=== PATIENT | female | born 1995 | race Caucasian/White ===

== ENCOUNTER 2018-03-08 09:46 | Day surgery (SDC) | payer OTHER ==
[2018-03-08 09:54] VITALS: BMI 43.2
--- NOTE | 2018-03-08 10:07 | PDOC ---
History of Present Illness - General Chief Complaint: Pain, Acute Stated Complaint: PRE-SURG Time Seen by Provider: 03/08/18 10:07 - History of Present Illness Initial Comments: 22 year old female with known cholelithiasis presenting with severe RUQ abdominal pain. She was scheduled for a surgical consult with a surgeon who's name she was unsure of at 11:00 AM today but could not stand the pain so she came to the ED. She had one episode of subjective fever two nights ago, daily bilious vomiting and soft stools. She was last seen at [facility] 2 weeks prior and had an US demonstrating increased burden of cholelithiasis. Denies chest pain, SOB, diaphoresis, or other sick symptoms. 03/08/18 10:25 Past History - Past Medical History Allergies/Adverse Reactions: Allergies Allergy/AdvReac Type Severity Reaction Status Date / Time No Known Allergies Allergy Verified 03/08/18 09:51 Home Medications: Ambulatory Orders NK [No Known Home Medication] 03/08/18 COPD: No Other medical history: Denies. - Surgical History Cholecystectomy: Yes (X1) - Suicide/Smoking/Psychosocial Hx Smoking History: Never smoked Review of Systems - Review of Systems Constitutional: Yes: Fever. No: Chills, Diaphoresis HEENTM: No: Eye Pain, Blurred Vision, Tearing Respiratory: No: Cough, Orthopnea, Shortness of Breath, Wheezing Cardiac (ROS): No: Chest Pain, Edema, Irregular Heart Rate ABD/GI: Yes: Nausea, Poor Appetite, Vomiting. No: Diarrhea : No: Burning, Dysuria, Discharge Musculoskeletal: No: Back Pain, Joint Pain Integumentary: No: Bruising, Flushing, Lesions, Lumps Neurological: No: Headache, Numbness, Paresthesia Psychiatric: No: Anxiety, Depression Hematologic/Lymphatic: No: Anemia, Blood Clots, Easy Bleeding *Physical Exam - Vital Signs Last Vital Signs Temp Pulse Resp BP Pulse Ox 98.5 F 89 19 146/86 98 03/08/18 09:51 03/08/18 09:51 03/08/18 09:51 03/08/18 09:51 03/08/18 09:51 - Physical Exam General Appearance: Yes: Nourished, Appropriately Dressed. No: Apparent Distress HEENT: positive: EOMI, ALFONSO, Normal ENT Inspection, Normal Voice Neck: positive: Trachea midline, Normal Thyroid, Supple. negative: Tender, Rigid Respiratory/Chest: positive: Lungs Clear, Normal Breath Sounds. negative: Chest Tender, Respiratory Distress, Accessory Muscle Use Cardiovascular: positive: Regular Rhythm, Regular Rate Gastrointestinal/Abdominal: positive: Normal Bowel Sounds, Tender (epigastric and RUQ tenderness to palpation), Flat, Soft, Tenderness. negative: Distended, Guarding, Rebound Musculoskeletal: positive: Normal Inspection. negative: CVA Tenderness Extremity: positive: Normal Capillary Refill, Normal Range of Motion. negative : Tender Integumentary: positive: Normal Color, Dry, Warm Neurologic: positive: Fully Oriented, Alert, Normal Mood/Affect, Normal Response , Motor Strength 03/12 ED Treatment Course - LABORATORY CBC & Chemistry Diagram: 03/08/18 10:39 03/08/18 10:39 Medical Decision Making - Medical Decision Making 22 year old female with known cholelithiasis presenting with worsened abdominal pain. Patient was supposed to be evalauted for surgery today but the pain was too sever. Preop labs ordered and Dr. Albrecht evaluated the patient. Imaging ordered per Dr. Albrecht and will admit to [facility]. 03/08/18 11:23 *DC/Admit/Observation/Transfer Diagnosis at time of Disposition: Cholelithiasis Qualifiers: Cholelithiasis location: gallbladder Cholecystitis acuity: chronic Biliary obstruction: without biliary obstruction - Discharge Dispostion Condition at time of disposition: Stable Admit: Yes - Referrals - Patient Instructions - Post Discharge Activity
--- NOTE | 2018-03-08 10:11 | PDOC ---
Attending Attestation - Resident Resident Name: Shun Morrow - HPI HPI: 03/08/18 11:42 Pt presents to the ED complaining of RUQ pain that has been persistent for one year but acutely worse today. Denies fever, but complains of multiple episodes of nausea and vomiting. History of cholelithiasis. Had an appointment with a surgeon to discuss cholecystectomy, which she was unable to keep because she presented to the ED today. - Physicial Exam PE: 03/08/18 11:54 Agree with resident exam. Patient is awake and alert and in no acute distress. Abodmen is tender in the RUQ without guarding or rebound. - Medical Decision Making 03/08/18 11:56 Pt presents to the ED complaining of RUQ pain. Previous diagnosis of cholelithiasis. Case discussed with Dr. Santamaria, who has come to the bedside to see the patient. Will check labs and admit for cholecystectomy due to intractable pain.
[2018-03-08] MEDS ORDERED: ONDANSETRON 4 MG/2 ML VIAL IVPUSH PRN ×3 (10:43→20:28)
[2018-03-08] MEDS ORDERED: IBUPROFEN 600 MG TABLET (FP) PO PRN ×3 (10:43→20:30)
[2018-03-08] MEDS ORDERED: ACETAMINOPHEN 325 MG TABLET (FP) PO PRN ×2 (10:43→13:54)
[2018-03-08] MEDS ORDERED: morphine CARPU-JECT 2 MG/1 ML DISP.SYRIN IVPUSH PRN (10:43)
[2018-03-08 10:44] LABS: URINE APPEARANCE CLOUDY; URINE BILIRUBIN NEGATIVE (<2.0 mg/dL); URINE BLOOD 3+ (NEGATIVE); URINE COLOR RED; URINE GLUCOSE (UA) NEGATIVE (NEGATIVE); URINE KETONE NEGATIVE (NEGATIVE); URINE NITRITE NEGATIVE (NEGATIVE); URINE UROBILINOGEN NEGATIVE mg/dL (0.2-1.0)
[2018-03-08 10:45] LABS: BASO % 1.2 % (0-2.0); HEMATOCRIT 35.3 % (32.4-45.2); HEMOGLOBIN 11.8 GM/dL (10.7-15.3); LYMPH % 24.3 % (8-40); MCH 25.8 pg (25.7-33.7); MCHC 33.4 g/dl (32.0-36.0); MEAN CELL VOLUME 77.3 fl (80-96); MEAN PLT VOLUME 8.4 fl (7.5-11.1); MONO % 7.8 % (3.8-10.2); NEUT % 62.7 % (42.8-82.8); PLATELET COUNT 297 K/MM3 (134-434); RBC 4.57 M/mm3 (3.60-5.2); RDW 16.8 % (11.6-15.6); URINE LEUK ESTERASE 2+ (NEGATIVE); URINE PROTEIN 2+ (NEGATIVE); WHITE BLOOD COUNT 6.8 K/mm3 (4.0-10.0)
[2018-03-08] MEDS ORDERED: LACTATED RINGERS SOLUTION 1,000 ML IV SCH ×2 (10:45→14:30)
[2018-03-08 10:49] LABS: EPI CELLS FEW /HPF (FEW); URINE MUCUS FEW
[2018-03-08 10:50] LABS: HCG,QUALITATIVE URINE Negative
--- NOTE | 2018-03-08 10:53 | HP ---
Admitting History and Physical - Admission Chief Complaint: abdominal pain History of Present Illness: 22yo female PMH obesity presented to the ED complaining of RUQ abdominal pain persistent and worsening for the last month. She has called several times with similar complaints. She has a diet high in saturated fats and her abdominal pain also starts soon after meals. She was recently seen at [facility] and found to have multiple gallstones. She denies fever and chills, nausea and vomiting. She has not had previous abdominal surgery. She has not has previous endoscopy. We were asked to assess. History Source: Patient, Medical Record Limitations to Obtaining History: No Limitations - Past Medical History Hepatobiliary: Yes: Cholelithiasis Additional Past Medical History: obesity - Smoking History Smoking history: Never smoked Have you smoked in the past 12 months: No - Alcohol/Substance Use Hx Alcohol Use: No - Social History History of Recent Travel: No Home Medications - Allergies Allergies/Adverse Reactions: Allergies Allergy/AdvReac Type Severity Reaction Status Date / Time No Known Allergies Allergy Verified 03/08/18 09:51 - Home Medications Home Medications: Ambulatory Orders NK [No Known Home Medication] 03/08/18 Review of Systems - Review of Systems Constitutional: denies: Chills, Fever Eyes: denies: Blurred Vision, Recent Change in Vision HENT: denies: Difficult Swallowing, Throat Pain Neck: denies: Pain on Movement, Swollen Glands Respiratory: denies: Cough, SOB Gastrointestinal: reports: Abdominal Pain, Indigestion Genitourinary: reports: Menses (currently). denies: Discharge, Dysuria Breasts: reports: No Symptoms Reported. denies: Pain Musculoskeletal: denies: Muscle Pain, Muscle Weakness Integumentary: denies: Lesions, Rash Neurological: denies: Seizure, Syncope Endocrine: denies: Unexplained Weight Gain, Unexplained Weight Loss Hematology/Lymphatic: denies: Easily Bruised, Excessive Bleeding Psychiatric: denies: Anxiety, Depression Physical Examination Vital Signs: Vital Signs Temperature 98.5 F 03/08/18 09:51 Pulse Rate 89 03/08/18 09:51 Respiratory Rate 19 03/08/18 09:51 Blood Pressure 146/86 03/08/18 09:51 O2 Sat by Pulse Oximetry (%) 98 03/08/18 09:51 Vital Signs Period Temp Pulse Resp BP Sys/Lambert Pulse Ox Last 24 Hr 98.5 F 89 19 146/86 98 Constitutional: Yes: No Distress, Calm, Obese Eyes: Yes: Conjunctiva Clear, EOM Intact HENT: Yes: Atraumatic, Normocephalic Neck: Yes: Supple, Trachea Midline Cardiovascular: Yes: Regular Rate and Rhythm, S1, S2 Respiratory: Yes: Regular, CTA Bilaterally Gastrointestinal: Yes: Normal Bowel Sounds, Soft, Tenderness (RUQ tenderness with -murphys), Tenderness, Epigastrium ...Rectal Exam: Yes: Deferred Renal/: No: CVA Tenderness - Left, CVA Tenderness - Right Musculoskeletal: No: Muscle Pain, Muscle Weakness Extremities: No: Cool, Cyanosis Edema: No Peripheral Pulses WNL: Yes Peripheral Pulses: Left Radial: 2+, Right Radial: 2+, Left Doralis Pedis: 2+, Right Dorsalis Pedis: 2+ Integumentary: No: Jaundice, Rash Neurological: Yes: Alert, Oriented Psychiatric: Yes: Alert, Oriented Imaging - Results Ultrasound: Report Reviewed, Image Reviewed Problem List - Problems (1) Cholecystitis Assessment/Plan: 22yo female with PMH obesity cholelithiasis presents with chronic cholecytitis, NPO since last night NPO and IVF hydration IV antibiotics preop Analgesia OR today for Discussed with patient risks, benefits and alternatives of laparoscopic possible open cholecystectomy, including but not limited to bleeding, infection , injury to adjacent structures, leak or injury, intraabdominal abscess, need for further procedures, ; alternatives include antibiotics, delayed or no surgery - risks of this include failure of nonoperative therapy, perforation, sepsis, recurrence, .Patient desires to proceed with operation - will take to OR for above. Informed consent signed for same. Code(s): K81.9 - CHOLECYSTITIS, UNSPECIFIED (2) Cholelithiasis Code(s): K80.20 - CALCULUS OF GALLBLADDER W/O CHOLECYSTITIS W/O OBSTRUCTION Qualifiers: Cholelithiasis location: gallbladder Cholecystitis acuity: chronic Biliary obstruction: without biliary obstruction (3) Obesity (BMI 35.0-39.9 without comorbidity) Code(s): E66.9 - OBESITY, UNSPECIFIED (4) Abdominal pain in female patient Code(s): R10.9 - UNSPECIFIED ABDOMINAL PAIN
[2018-03-08 10:57] LABS: INR 0.97 (0.82-1.09)
[2018-03-08] MEDS ORDERED: CEFOXITIN SODIUM 2 GM in DEXTROSE 5%-WATER - 100 ML IVPB ONE ×2 (11:04→14:30)
[2018-03-08 11:12] LABS: ALBUMIN 3.6 g/dl (3.4-5.0); AMYLASE 47 U/L (25-115); ANION GAP 9 (8-16); BILIRUBIN,DIRECT < 0.2 mg/dL (0.0-0.2); BILIRUBIN,TOTAL 0.2 mg/dL (0.2-1.0); BLOOD UREA NITROGEN 13 mg/dL (7-18); CALCIUM 8.6 mg/dL (8.5-10.1); CHLORIDE 106 mmol/L (98-107); CO2 26 mmol/L (21-32); CREATININE 0.8 mg/dL (0.55-1.02); GLUCOSE,RANDOM 98 mg/dL (74-106); LIPASE 144 U/L (73-393); POTASSIUM 4.2 mmol/L (3.5-5.1); SGOT/AST 13 U/L (15-37); SGPT/ALT 24 U/L (12-78); SODIUM 141 mmol/L (136-145); TOT PROT 7.3 g/dl (6.4-8.2)
[2018-03-08 11:13] LABS: ALK PHOS 57 U/L (45-117)
[2018-03-08] MEDS ORDERED: BUPIVACAINE HCL/PF 0.5% (5MG/ML) 10 ML VIAL ONE (11:44)
[2018-03-08] MEDS ORDERED: fentaNYL CITRATE 250 MCG/5 ML VIAL ONE (12:29)
[2018-03-08] MEDS ORDERED: MIDAZOLAM HCL 2 MG/2 ML SINGLE DOSE VIAL ONE ×2 (12:30)
[2018-03-08] MEDS ORDERED: PROPOFOL 20 ML ONE (12:30)
[2018-03-08] MEDS ORDERED: ROCURONIUM BROMIDE 50 MG/5 ML VIAL ONE (12:30)
[2018-03-08] MEDS ORDERED: DEXAMETHASONE SOD PHOSPHATE 4 MG/1 ML VIAL ONE (12:32)
[2018-03-08] MEDS ORDERED: cefOXitin SODIUM 2 GM VIAL (RESTRICTED TO ID) IVPB ONE (12:35)
[2018-03-08] MEDS ORDERED: BUPIVACAINE HCL/PF 0.5% (5MG/ML) 10 ML VIAL IJ ONE (13:22)
[2018-03-08] MEDS ORDERED: NEOSTIGMINE METHYLSULFATE 0.5 MG/ML - 10 ML MDV ONE (13:23)
[2018-03-08] MEDS ORDERED: KETOROLAC TROMETHAMINE 30 MG/1 ML VIAL ONE (13:39)
--- NOTE | 2018-03-08 13:39 | SURG ---
Surgery Inspectors And Regulatory Officers Note Inspectors And Regulatory Officers: Mj Chinchilla PA-C Date of Service: 03/08/18 Diagnosis: Chronic cholecystitis/cholelithiasis Procedure: Laparoscopic cholecystectomy I was present for the entirety of the operative procedure. For further detail, please refer to operative report. Visit type - Case Type Case Type: ED Admission - Emergency Emergency Visit: Yes Care time: The patient presented to the Emergency Department on the above date and was hospitalized for further evaluation of their emergent condition. - New patient This patient is new to me today: Yes Date on this admission: 03/08/18
--- NOTE | 2018-03-08 13:41 | OP ---
Operative Note - Note: Operative Date: 03/08/18 Pre-Operative Diagnosis: acute on chronic cholecystitis Operation: laparoscopic cholecystectomy Findings: edematous gallbladder, multiple stones, critical view identified. Post-Operative Diagnosis: Same as Pre-op Surgeon: Steve Albrecht Professor Of Mathematics: Mj Chinchilla Anesthesiologist/GAS METER PROVER: Naila Díaz Anesthesia: General, Local (0.5% marcaine ) Specimens Removed: gallbladder and stones Estimated Blood Loss (mls): 5 Fluid Volume Replaced (mls): 400 (crystalloid ) Operative Report Dictated: Yes
[2018-03-08] MEDS ORDERED: KETOROLAC TROMETHAMINE 30 MG/1 ML VIAL IVPUSH ONE ×3 (13:43→17:15)
[2018-03-08] MEDS ORDERED: ACETAMINOPHEN 1000 MG/100 ML VIAL (NON FORMULARY) IVPB ONE ×2 (13:43→13:54)
[2018-03-08] MEDS ORDERED: ACETAMINOPHEN INJECTION 100 ML IVPB ONE (13:43)
--- NOTE | 2018-03-08 13:46 | EKG ---
Test Reason : Blood Pressure : / mmHG Vent. Rate : 073 BPM Atrial Rate : 073 BPM P-R Int : 134 ms QRS Dur : 086 ms QT Int : 366 ms P-R-T Axes : 048 028 023 degrees QTc Int : 403 ms NORMAL SINUS RHYTHM WITH SINUS ARRHYTHMIA NORMAL ECG NO PREVIOUS ECGS AVAILABLE Confirmed by Demarco Malin ([id number]) on 03/08/2018 1:46:15 PM Referred By: Confirmed By:Demarco Malin
[2018-03-08] MEDS ORDERED: morphine SULFATE 4 MG/ML VIAL IVPUSH PRN (13:54)
--- NOTE | 2018-03-08 14:49 | OP ---
DATE OF OPERATION: 03/08/2018 PREOPERATIVE DIAGNOSIS: [id number] cholecystitis. POSTOPERATIVE DIAGNOSIS: [id number] cholecystitis. PROCEDURE PERFORMED: Laparoscopic cholecystectomy. ATTENDING SURGEON: Steve Albrecht MD LEGAL MANAGER: CACHORRO Baer ANESTHESIOLOGIST: ANESTHESIA: General with local, local consisting of 0.5% Marcaine, a total of 20 mL given in an area block fashion. ESTIMATED BLOOD LOSS: 5 mL. INTRAVENOUS FLUID ADMINISTERED: Crystalloid, 400 mL. SPECIMEN: Gallbladder with stones. INDICATIONS: The patient is a 22-year-old female with intermittent biliary colic, history of episodes of acute cholecystitis. She presented with right upper quadrant abdominal pain. A sonogram confirmed the presence of pericholecystic fluid as well as large gallstones in the gallbladder. She was counseled regarding the risks, benefits and alternatives of surgical procedure, a laparoscopic cholecystectomy. She signed informed consent and was taken for the procedure. DESCRIPTION OF PROCEDURE: The patient was brought to the operating room and placed in the supine position on the operating table, with the right arm tucked and left arm extended 90 degrees perpendicular to the body's axis at the midline axis. Lower extremity SCDs had placed for compression. The patient was endotracheally intubated, after induction with general anesthesia without incident by the anesthesiologist. The anterior abdominal wall was then prepped and draped into a standard surgical fashion. We proceeded first with Veress needle entry at the umbilicus, after a formal time-out identifying the operative site and procedure, with all parties in agreement. A small mayco incision was made at the superior aspect of the umbilicus, and a Veress needle was passed into the midline rectus fascia with 2 clicks, and a saline drop test confirming position intra-abdominally, after elevating the abdominal wall with towel clips. We proceeded then with instillation of pneumoperitoneum to 15 mmHg. Once established, a 5-mm trocar was inserted at the supraumbilical site and the entry site was inspected. There appeared to be no trauma. We proceeded then with inspection of the gallbladder, which lay in normal position in the hepatic fossa. The patient was positioned in reverse Trendelenburg, facilitating dissection. Additional trocars were placed, at the xiphoid process an 11-mm port and 2 additional 5-mm ports in the right abdomen. Once established, the gallbladder was grasped at the dome and then at the infundibulum. We proceeded first with dissection of the peritoneum away from the cystic structures. The cystic duct and artery appeared in their normal anatomic location. A plane was developed posterior to the cystic duct and the cystic artery, allowing for the critical view, identifying the hepatic plate. Then were then cross-clipped with 5-mm Endo clips and then transected with Endo Debbi. The gallbladder was then elevated from the hepatic plate using Bovie cautery at the liver bed. Care was taken to carefully dissect this out, without avulsing from the liver bed. After completely removing the gallbladder and obtaining hemostasis the liver bed with Bovie cautery, the gallbladder was then retrieved from the subxiphoid position with an Endo Catch bag. The Endo Catch bag was then retrieved from the abdomen, and the gallbladder was inspected. There appeared to be multiple stones and an edematous wall was noted. We then proceeded with inspection of the site. A small amount of irrigation of the right upper quadrant and the liver bed, and assured the clips were in adequate position. The trocars were then removed under direct visualization. We proceeded to relieve the pneumoperitoneum and repair the subxiphoid position with a suture passer. 4-0 Vicryl was used to tie and ablate the tract from the xiphoid position. We then proceeded to repair the skin in interrupted fashion with 4-0 Monocryl. Once the skin was repaired in subcuticular fashion, the skin was cleaned and Dermabond was placed. The patient was awoken from general anesthesia, having tolerated the procedure well. She was given instructions to follow up in a period of 1 week. MD MC Canales/[id number]
[2018-03-08] MEDS ORDERED: DOCUSATE SODIUM 100 MG CAPSULE (FP) PO PRN (20:29)
[2018-03-08] MEDS: morphine SULFATE 4 MG/ML VIAL IVPUSH PRN (20:38)
[2018-03-08] MEDS: oxyCODONE HCL 5 MG TABLET PO PRN (23:19)
[2018-03-09] MEDS: morphine SULFATE 4 MG/ML VIAL IVPUSH PRN ×2 (00:35→05:34)
--- NOTE | 2018-03-09 09:11 | DS ---
Physical Examination Vital Signs: Vital Signs Temperature 98.3 F 03/09/18 08:00 Pulse Rate 65 03/09/18 08:00 Respiratory Rate 18 03/09/18 08:00 Blood Pressure 131/75 03/09/18 08:00 O2 Sat by Pulse Oximetry (%) 100 03/08/18 20:23 Vital Signs Period Temp Pulse Resp BP Sys/Lambert Pulse Ox Last 24 Hr 97.6 F-99.1 F 58-89 10-20 122-150/68-104 98-100 Findings/Remarks: Stable overnight, complaints of pain in the sub-xyphoid position, tolerating diet. Constitutional: Yes: Well Nourished, No Distress, Calm Eyes: Yes: Conjunctiva Clear, EOM Intact HENT: Yes: Atraumatic, Normocephalic Neck: Yes: Supple, Trachea Midline Cardiovascular: Yes: Regular Rate and Rhythm, S1, S2 Respiratory: Yes: Regular, CTA Bilaterally Gastrointestinal: Yes: Normal Bowel Sounds, Soft, Abdomen, Obese, Tenderness ( RUQ) ...Rectal Exam: Yes: Deferred Renal/: No: CVA Tenderness - Left, CVA Tenderness - Right Musculoskeletal: No: Muscle Pain, Muscle Weakness Extremities: No: Cool, Cyanosis Edema: No Peripheral Pulses WNL: Yes Peripheral Pulses: Left Radial: 2+, Right Radial: 2+, Left Doralis Pedis: 2+, Right Dorsalis Pedis: 2+, Left Femoral: 2+, Right Femoral: 2+ Wound/Incision: Yes: Clean/Dry, Well Approximated. No: Draining, Reddened Neurological: Yes: Alert, Oriented Psychiatric: Yes: Alert, Oriented Labs: CBC, BMP 03/08/18 10:39 03/08/18 10:39 Discharge Summary Reason For Visit: CHOLELITHIASIS Current Active Problems Abdominal pain in female patient (Acute) Cholecystitis (Acute) Cholelithiasis (Acute) Obesity (BMI 35.0-39.9 without comorbidity) (Acute) Procedures: Principal: laparoscopic cholecystectomy Hospital Course: Admitted from emergency department with severe RUQ pain and radiologic evidence of cholecystitis. Taken for urgent an uneventful laparoscopic cholecystectomy. stable post op tolerating diets and ambulating, voiding, discharged home. Condition: Improved - Instructions Diet, Activity, Other Instructions: Postoperative instructions: You had a Laparoscopic Cholecystectomy on 03/08/[address] Steve Albrecht of [facility]. Activity: Resume your usual activities gradually, but no heavy exertion or lifting more than 10-15 pounds for 4-6 weeks. Remove dressings 48 hours after surgery, if they are not already off. You may shower daily starting then, just pat the incision areas dry. Yara should not need to be recovered with any dressings, unless you have been told otherwise. Eat lightly at first, but advance to your usual diet as tolerated. Pain: For pain, you may use and alternate Tylenol (acetaminophen) and/or ibuprofen every 6 hours each as needed; this means that you can take one OR the other at 3-hour intervals. If you are prescribed a Tylenol/narcotic combination for severe pain, use it instead of plain Tylenol as needed and switch back when your pain starts decreasing. Do not take more than 4000mg of acetaminophen in a day. Take medications as prescribed or indicated on the labeling. Follow-up: Call Dr. Amor office at [phone] to make your postop appointment (Wednesday 1-2 weeks after surgery as advised). Clinic is held in the Diagnostic Center on the first floor of [facility]. Call the office if you have: * increasing pain not responsive to pain medication * fever of 101F or higher * vomiting * unusual or increasing bleeding or drainage from wounds * increasing redness or swelling at wound sites * inability to urinate Also, see your primary medical doctor within 1-2 weeks. Referrals: Kailash Decker MD [Staff Physician] - Disposition: HOME - Home Medications Comprehensive Discharge Medication List: Ambulatory Orders Ibuprofen 600 mg PO Q8H PRN #30 tablet 03/08/18 Ondansetron HCl [Zofran] 4 mg PO Q8H PRN 3 Days #15 tablet 03/08/18 Oxycodone HCl/Acetaminophen [Percocet 5/325 -] 1 tab PO Q6H #60 tab MDD 4
[2018-03-09] MEDS: ACETAMINOPHEN 325 MG TABLET (FP) PO PRN ×2 (10:51→17:08)
[2018-03-09] MEDS: oxyCODONE HCL 5 MG TABLET PO PRN ×2 (10:52→17:07)
[2018-03-09 14:29] VITALS: BP 135/85; PULSE 71; TEMP 98.4
[2018-03-09] MEDS ORDERED: POLYETHYLENE GLYCOL 3350 119 GM BTL PO ONE (14:45)
--- NOTE | 2018-03-10 16:19 | PATH ---
Surgical Pathology Report Patient Name: SHAE AMOR [facility]. Rec. #: [id number] /Age/Gender: 1995 (Age: 22) / F Account: [id number] Location: AMBULATORY SURG Taken: 03/08/2018 Received: 03/09/2018 Reported: 03/10/2018 Physicians: Steve Albrecht M.D. Specimen(s) Received GALLBLADDER Clinical History Cholelithiasis Final Diagnosis GALLBLADDER, LAPAROSCOPIC CHOLECYSTECTOMY: CHRONIC CHOLECYSTITIS WITH CHOLELITHIASIS. Electronically Signed Eliza Vargas M.D. Gross Description Received in formalin, labeled "gallbladder," is a 7.0 x 2.7 x 2.7 cm. gallbladder with a 0.2 cm. in length portion of cystic duct attached. The outer surface is reyes-pink with a focal defect and varies from smooth to shaggy. The lumen contains green, tenacious bile as well as a 1.8 cm in greatest dimension green, ovoid cholelith. The mucosa is green and velvety with focal erosions. The wall of the gallbladder averages 0.3 cm. in thickness. [employer] sections are submitted in one cassette. /03/09/2018 saudi03/09/2018
== END 2018-03-09 18:00 | disposition home or self-care (01) ==
LOC: JER 09:46 → JASUSAT 10:43 → J6S 15:37 → JASUSAT 03-09 18:00
PROC: 0FT44ZZ Resection of Gallbladder, Percutaneous Endoscopic Approach (ICD-10-PCS; principal; 2018-03-08 12:00)
DX: K81.2 Acute cholecystitis with chronic cholecystitis (principal); E66.9 Obesity, unspecified; Z68.41 Body mass index [BMI] 40.0-44.9, adult
CPT/HCPCS: 36415; 76705-TC; 80053; 81003; 81015; 82150; 82248; 83690; 84703; 85025; 85610; 86850; 86900; 86901; 87086; 88304-TC; 93005; 93010; 94760; 99284-25; J0131